=== PATIENT | male | born 1960 | race Hispanic/Latino ===

== ENCOUNTER 2016-12-20 20:30 | Outpatient (CLI) | payer BC | END 2016-12-20 20:31 | disposition home or self-care (01) | LOC: SLEEPLAB 20:30 | PROVIDERS: ATTEND Family Medicine | DX: G47.33 Obstructive sleep apnea (adult) (pediatric) (principal); G47.10 Hypersomnia, unspecified; R06.83 Snoring; G47.00 Insomnia, unspecified | CPT/HCPCS: 95811 ==